=== PATIENT | female | born 1960 | race Caucasian/White ===

== ENCOUNTER 2023-11-25 01:24 | Outpatient (CLI) | payer BC, SELFPAY ==
--- NOTE | 2023-11-25 06:45 | DI.US_ITS ---
Exam(s) US NEEDLE LOCAL OTHER WO RAD EXAM: Left inferior nodule meets criteria,ultrasound guided bx,e04.2 COMPARISON: US US THYROID from 11/10/2023 TECHNIQUE: Ultrasound performed using standard protocol. FINDINGS: Sonography was provided for Dr. Zabala during the performance of a biopsy of the left thyroid nodule . Please refer to the procedure report for complete details. DATA REPOSITORY:
--- NOTE | 2023-11-25 11:20 | PAPNONF_PTH ---
PATIENT: Belkys Chin LOC: [facility] U#:[id number] AGE/SX: 63/F ROOM: RE11/25/[address]: Leighton Zabala MD : 1960 BED: DIS: 11/25/2023 SPEC #: [id number] RECD: 11/25/23 13:00 STATUS: JOSAFAT GALLEGO #: [id number] LUCAS: 11/25/23 11:[address]: Leighton Zabala DEPT: [facility] Cytology RECD BY: Melly Salvador ENTERED: 11/25/23 13:01 SP TYPE: ANUSHKA ABRAHAM DR: Domi Field Tissues: 1 - BODY FLUID CYTO-FINE NEEDLE [facility]IRATE[facility] Procedures: BODY FLUID CYTO-FINE NEEDLE ASPIRATE-[facility] Comments: [id number] (PATH FNA CONSULT) (REFRIGERATED)
--- NOTE | 2023-11-25 11:43 | W.PROCNOTE ---
Date of service: 11/25/23 Time of Service: 11:43 Procedure Note Date of procedure: 11/25/23 Procedure: Ultrasound-guided FNA, left thyroid nodule, pathology present Procedure Diagnosis: Left thyroid nodule meeting criteria for biopsy Procedure Indications: The patient has a left-sided thyroid nodule meeting criteria for biopsy. Options were explained to the patient regarding further management. She elected to undergo the above procedure. Consent was filled out and signed prior to the procedure. Risks and benefits as well as the operative and postoperative courses were discussed at length. She still wish to proceed. She noted no change in medications and no change in her health Procedure Description: The patient was positioned in supine position with her neck slightly extended and prepped and draped in appropriate fashion. Ultrasound was used to localize the left-sided thyroid nodule, and then 1% lidocaine with 1/100,000 epinephrine was injected in the skin and subcutaneous tissues over the medial aspect of the nodule. A 25-gauge needle was then passed into the thyroid nodule, and used to perform FNA. After ensuring adequate cellularity, 2 additional passes were made for potential Afirma testing. The patient tolerated all of this well. There was no significant bleeding. Sterile dressing was applied after ensuring adequate hemostasis. The patient was then allowed to sit and stand. Her vital signs remained stable. For aftercare, she will remove the bandage tonight and not replace it. She will use ibuprofen or Tylenol for any discomfort. She will call with any concerns or problems. She will otherwise follow-up with me by phone if she does not hear from me within 1 week. She had no further questions. She is comfortable with this plan.
== END 2023-11-25 01:44 ==
LOC: DI 01:24
PROVIDERS: PCP Nurse Practitioner; Visit Provider Otolaryngology
DX: E04.2 Nontoxic multinodular goiter (principal)
CPT/HCPCS: 10005; 76942; 88104